=== PATIENT | female | born 1970 | race African-American/Black ===

== ENCOUNTER 2023-02-13 12:59 | Inpatient (IN) | payer OTHER ==
[2023-02-13 13:22] VITALS: BMI 19.7
[2023-02-13] MEDS ORDERED: POLYETHYLENE GLYCOL (HEALTHYLAX) 3350 17 GM PACKET PO PRN (16:58)
[2023-02-13] MEDS ORDERED: BISMUTH SUBSALICYLATE 524 MG/30 ML PO PRN (16:58)
[2023-02-13] MEDS ORDERED: LOPERAMIDE HCL 2 MG CAPSULE PO PRN (16:58)
[2023-02-13] MEDS ORDERED: ACETAMINOPHEN 325 MG TABLET (FP) PO PRN (16:58)
[2023-02-13] MEDS ORDERED: DICYCLOMINE HCL 10 MG CAPSULE PO PRN (16:58)
[2023-02-13] MEDS ORDERED: IBUPROFEN 600 MG TABLET (FP) PO PRN (16:58)
[2023-02-13] MEDS ORDERED: ONDANSETRON *ODT* 4 MG TABLET SL PRN (16:58)
[2023-02-13] MEDS ORDERED: BENZONATATE 200 MG CAPSULE PO PRN (16:58)
[2023-02-13] MEDS ORDERED: guaiFENesin 600 MG TABLET.ER (FP) PO PRN (16:58)
[2023-02-13] MEDS ORDERED: BENZOCAINE/MENTHOL (CHLORASEPTIC ) LOZENGE MM PRN (16:58)
[2023-02-13] MEDS ORDERED: MAGNESIUM HYDROX 2400MG/30ML ORAL SUSPENSION 30 ML CUP PO PRN (16:58)
[2023-02-13] MEDS ORDERED: NALOXONE HCL (KLOXXADO) 8 MG SPRAY NS PRN (16:58)
[2023-02-13] MEDS ORDERED: IBUPROFEN 400 MG TABLET (FP) PO PRN (16:58)
[2023-02-13] MEDS ORDERED: NALOXONE HCL 0.4 MG/ML VIAL IM PRN (16:58)
[2023-02-13] MEDS: METHOCARBAMOL 500 MG TABLET PO PRN (18:06)
[2023-02-13] MEDS: hydrOXYzine PAMOATE 25 MG CAPSULE (FP) PO PRN (18:06)
[2023-02-13] MEDS ORDERED: MELATONIN 5 MG TABLETS PO SCH (22:00)
[2023-02-13] MEDS: THIAMINE HCL 100 MG TABLET (FP) PO SCH (22:35)
[2023-02-13] MEDS: MAG HYDROX/AL HYDROX/SIMETH 30 ML UNIT-DOSE CUP PO PRN (22:36)
[2023-02-14] MEDS: hydrOXYzine PAMOATE 25 MG CAPSULE (FP) PO PRN (10:30)
[2023-02-14] MEDS: PRENATAL VITAMINS W/ FOLIC ACID TABLET (FP) PO SCH (10:30)
[2023-02-14] MEDS: METHOCARBAMOL 500 MG TABLET PO PRN (10:30)
[2023-02-14] MEDS ORDERED: methaDONE HCL 10 MG TABLET (FOR DETOX USE ONLY) PO ONE (11:06)
[2023-02-14] MEDS: BENZTROPINE MESYLATE 1 MG TABLET PO SCH (17:45)
[2023-02-14] MEDS: cloNIDine HCL 0.1 MG TABLET PO PRN (18:02)
[2023-02-14] MEDS: DIVALPROEX SODIUM 500 MG TABLET E.C. PO SCH (22:14)
[2023-02-14] MEDS: THIAMINE HCL 100 MG TABLET (FP) PO SCH (22:14)
[2023-02-14] MEDS: QUEtiapine FUMARATE 400 MG TABLET PO SCH (22:15)
[2023-02-15] MEDS: DIVALPROEX SODIUM 500 MG TABLET E.C. PO SCH ×2 (10:46→22:29)
[2023-02-15] MEDS: PRENATAL VITAMINS W/ FOLIC ACID TABLET (FP) PO SCH (10:46)
[2023-02-15] MEDS: BENZTROPINE MESYLATE 1 MG TABLET PO SCH (10:46)
[2023-02-15] MEDS: THIAMINE HCL 100 MG TABLET (FP) PO SCH (22:29)
[2023-02-15] MEDS: QUEtiapine FUMARATE 400 MG TABLET PO SCH (22:29)
[2023-02-15] MEDS: hydrOXYzine PAMOATE 25 MG CAPSULE (FP) PO PRN (22:29)
[2023-02-15] MEDS: METHOCARBAMOL 500 MG TABLET PO PRN (22:30)
[2023-02-16] MEDS ORDERED: methaDONE HCL 10 MG TABLET (FOR DETOX USE ONLY) PO ONE (10:00)
[2023-02-16] MEDS: BENZTROPINE MESYLATE 1 MG TABLET PO SCH (10:11)
[2023-02-16] MEDS: PRENATAL VITAMINS W/ FOLIC ACID TABLET (FP) PO SCH (10:11)
[2023-02-16] MEDS: DIVALPROEX SODIUM 500 MG TABLET E.C. PO SCH ×2 (10:11→22:02)
[2023-02-16 13:17] LABS: HEMATOCRIT 39.5 % (32.4-45.2); HEMOGLOBIN 12.1 GM/dL (10.7-15.3); MCHC 30.7 g/dl (32.0-36.0); MEAN CELL VOLUME 75.1 fl (80-96); MEAN PLT VOLUME 8.8 fl (7.5-11.1); PLATELET COUNT 219 10^3/uL (134-434); RBC 5.26 M/mm3 (3.60-5.2); RDW 14.9 % (11.6-15.6); WHITE BLOOD COUNT 5.8 K/mm3 (4.0-10.0)
[2023-02-16 13:20] LABS: CHLORIDE 103 mmol/L (98-107); POTASSIUM 4.1 mmol/L (3.5-5.1); SODIUM 143 mmol/L (136-145)
[2023-02-16 13:22] LABS: CALCIUM 9.4 mg/dL (8.5-10.1)
[2023-02-16 13:23] LABS: ALBUMIN 3.1 g/dl (3.4-5.0); ANION GAP 10 mmol/L (4-13); BLOOD UREA NITROGEN 9.7 mg/dL (7-18); CO2 30 mmol/L (21-32); GLUCOSE,RANDOM 113 mg/dL (74-106)
[2023-02-16 13:26] LABS: CREATININE 0.8 mg/dL (0.55-1.3); SGOT/AST 19 U/L (15-37); SGPT/ALT 47 U/L (13-61)
[2023-02-16 13:27] LABS: TOT PROT 6.8 g/dl (6.4-8.2)
[2023-02-16 13:28] LABS: BILIRUBIN,TOTAL < 0.1 mg/dL (0.2-1)
[2023-02-16 13:29] LABS: ALK PHOS 116 U/L (45-117)
[2023-02-16] MEDS: cloNIDine HCL 0.1 MG TABLET PO PRN ×2 (17:40→22:02)
[2023-02-16] MEDS: MAG HYDROX/AL HYDROX/SIMETH 30 ML UNIT-DOSE CUP PO PRN (17:42)
[2023-02-16] MEDS: THIAMINE HCL 100 MG TABLET (FP) PO SCH (22:02)
[2023-02-16] MEDS: QUEtiapine FUMARATE 400 MG TABLET PO SCH (22:02)
[2023-02-17] MEDS: PRENATAL VITAMINS W/ FOLIC ACID TABLET (FP) PO SCH (10:17)
[2023-02-17] MEDS: DIVALPROEX SODIUM 500 MG TABLET E.C. PO SCH ×2 (10:17→22:08)
[2023-02-17] MEDS: BENZTROPINE MESYLATE 1 MG TABLET PO SCH (10:17)
[2023-02-17] MEDS: MAG HYDROX/AL HYDROX/SIMETH 30 ML UNIT-DOSE CUP PO PRN (19:24)
[2023-02-17] MEDS: THIAMINE HCL 100 MG TABLET (FP) PO SCH (22:08)
[2023-02-17] MEDS: QUEtiapine FUMARATE 400 MG TABLET PO SCH (22:08)
[2023-02-18] MEDS: DIVALPROEX SODIUM 500 MG TABLET E.C. PO SCH ×2 (09:35→22:11)
[2023-02-18] MEDS: PRENATAL VITAMINS W/ FOLIC ACID TABLET (FP) PO SCH (09:35)
[2023-02-18] MEDS: BENZTROPINE MESYLATE 1 MG TABLET PO SCH (09:35)
[2023-02-18] MEDS ORDERED: methaDONE HCL 10 MG TABLET (FOR DETOX USE ONLY) PO ONE (10:00)
[2023-02-18] MEDS: amLODIPine BESYLATE 2.5 MG TABLET (FP) PO SCH (10:35)
[2023-02-18] MEDS: QUEtiapine FUMARATE 400 MG TABLET PO SCH (22:11)
[2023-02-18] MEDS: THIAMINE HCL 100 MG TABLET (FP) PO SCH (22:11)
[2023-02-18] MEDS: METHOCARBAMOL 500 MG TABLET PO PRN (22:11)
[2023-02-19 09:18] VITALS: BP 120/87; PULSE 105; RESP 18; TEMP 98
[2023-02-19] MEDS: BENZTROPINE MESYLATE 1 MG TABLET PO SCH (09:46)
[2023-02-19] MEDS: PRENATAL VITAMINS W/ FOLIC ACID TABLET (FP) PO SCH (09:46)
[2023-02-19] MEDS: amLODIPine BESYLATE 2.5 MG TABLET (FP) PO SCH (09:46)
[2023-02-19] MEDS: DIVALPROEX SODIUM 500 MG TABLET E.C. PO SCH (09:46)
== END 2023-02-19 10:10 | disposition home or self-care (01) | DRG 773 ==
LOC: YASAS 12:59 → Y6N 16:54
PROVIDERS: ADMIT Allergy & Immunology; ATTEND Surgery
PROC: HZ2ZZZZ Detoxification Services for Substance Abuse Treatment (ICD-10-PCS; principal; 2023-02-13)
DX: F11.23 Opioid dependence with withdrawal (principal); F17.210 Nicotine dependence, cigarettes, uncomplicated; F25.0 Schizoaffective disorder, bipolar type; F19.282 Other psychoactive substance dependence with psychoactive substance-induced sleep disorder; I10 Essential (primary) hypertension; J45.909 Unspecified asthma, uncomplicated; K29.70 Gastritis, unspecified, without bleeding; Z28.310 Unvaccinated for COVID-19; Z28.9 Immunization not carried out for unspecified reason
CPT/HCPCS: 36415; 80053; 80307; 81025; 85027; 86780; 87635; 87811